=== PATIENT | female | born 1950 | race Caucasian/White ===

== ENCOUNTER → 2016-10-16 | Outpatient (CLI) | payer MEDICARE, BC ==
[~2016-10-16] MED LIST: ACETAMINOPHEN PO; CELEXA20 MG PO; CHOLESTYRAMINE L4 GM PO; CHOLESTYRAMINE P4 GM PO; CLARITIN10 M3 PO; CYMBALTA20 MG PO; FISH OIL 1,0001 CA2 PO; HUMIRA PSO40 MG/0.8 INJ; HYDROCHLOROTHIA25 MG PO; LIPITOR20 MG PO; LISINOPRIL10 MG PO; LO-DOSE ASPIRIN81 M1 PO; LORTAB PO; METFORMIN HCL1000 M2 PO; METOPROLOL SUCC25 MG PO; NEXIUM PO; ONE DAILY 50 PL1 TA1 PO; RESTASIS32 EA OD; TYLENOL PO; ZESTRIL10 M1 PO
--- NOTE | ~2016-10-16 | EKG ---
PATIENT: RUTH RAMIREZ UNIT #: [id number] Ventricular Rate: 70 BPM Atrial Rate: 70 BPM P-R Interval: 168 ms QRS Duration: 88 ms Q-T Interval: 436 ms QTC Calculation(Bezet): 470 ms P Spencer: 45 degrees Calculated R Spencer: 7 degrees Calculated T Spencer: 16 degrees Diagnosis Line: Sinus rhythm with frequent Premature ventricular Diagnosis Line: complexes Diagnosis Line: Nonspecific ST abnormality Diagnosis Line: Abnormal ECG Diagnosis Line: When compared with ECG of 11-JUL-2014 12:14, Diagnosis Line: Premature ventricular complexes are now Present Diagnosis Line: Confirmed by GURINDER MCGHEE MD ([id number]) on 10/16/2016 Diagnosis Line: 10:48:39 PM Diagnosis Line: Also confirmed by GURINDER MCGHEE MD ([id number]), photograph editor Diagnosis Line: SULEMAN BARRERA ([id number]) on 10/21/2016 11:24:58 AM INTERPRETING MD: TAZ RIDDLE
--- NOTE | ~2016-10-16 | EKG ---
PATIENT: RUTH RAMIREZ UNIT #: [id number] Ventricular Rate: 70 BPM Atrial Rate: 70 BPM P-R Interval: 168 ms QRS Duration: 88 ms Q-T Interval: 436 ms QTC Calculation(Bezet): 470 ms P Cord: 45 degrees Calculated R Cord: 7 degrees Calculated T Cord: 16 degrees Diagnosis Line: Sinus rhythm with frequent Premature ventricular Diagnosis Line: complexes Diagnosis Line: Nonspecific ST abnormality Diagnosis Line: Abnormal ECG Diagnosis Line: When compared with ECG of 11-JUL-2014 12:14, Diagnosis Line: Premature ventricular complexes are now Present Diagnosis Line: Confirmed by GURINDER MCGHEE MD ([id number]) on 10/16/2016 Diagnosis Line: 10:48:39 PM Diagnosis Line: Also confirmed by GURINDER MCGHEE MD ([id number]), editor house organ Diagnosis Line: SULEMAN BARRERA ([id number]) on 10/21/2016 11:24:58 AM Diagnosis Line: Also confirmed by GUIRNDER MCGHEE MD ([id number]), editor house organ Diagnosis Line: SULEMAN BARRERA ([id number]) on 10/21/2016 11:25:30 AM INTERPRETING MD: TAZ RIDDLE
== END | disposition home or self-care (01) ==
LOC: CRAD 17:31
DX: R00.2 Palpitations (principal); R94.31 Abnormal electrocardiogram [ECG] [EKG]
CPT/HCPCS: 93005

== ENCOUNTER → 2016-10-28 | Outpatient (CLI) | payer MEDICARE, BC ==
--- NOTE | ~2016-10-28 | CT55 ---
[facility] A Service of [facility] RADIOLOGY TEXT RESULTS PATIENT: RUTH RAMIREZ LOCATION: [facility] : 51 UNIT #: [id number] AGE: [address]: Lucretia Huerta SEX: F ORDER DR: [id number] [place], [place] [address] [id number] O MR#: [id number] Acc #: [id number] NAME: RUTH RAMIREZ. : 1950 SEX: F STUDY DATE/TIME: 10/28/2016 14:31 UNIT: [facility] ROOM: STUDY DESCRIPTION: CT Chest W Con Attending Physician: Lucretia Huerta A.P.R.N. Ordering Physician: Lucretia Huerta A.P.R.N. Primary Care Physician: Lyly Singh M.D. MEDICAL IMAGING REPORT This report is preliminary unless electronic signature is present EXAM CT of the chest with contrast INDICATION Hemoptysis for 3-[address] scan of the chest was performed following the administration of IV contrast. Coronal and sagittal reformatted images were obtained. This CT exam was performed with one or more of the following radiation dose reduction techniques: automatic exposure control, adjustment of mA and/or kV according to patient size, and iterative reconstruction. COMPARISON 05/31/2013 FINDINGS There are a few scattered tiny calcified granulomas within the lungs. There is no airspace consolidation or suspicious pulmonary nodule. There is no suspicious lymphadenopathy or pleural effusion. Limited imaging of the upper abdomen demonstrates a Lap-Band. There is a nodular contour of the liver suggesting possible cirrhosis. Bone windows are unremarkable. IMPRESSION 1. There is no airspace consolidation or suspicious pulmonary nodule. 2. Incidentally noted is a nodular contour of the liver suggesting possible cirrhosis. Dictated by... Felipe Cunha M.D. THIS IS AN ELECTRONICALLY VERIFIED REPORT [facility] A Service of [facility] RADIOLOGY TEXT RESULTS PATIENT: RUTH RAMIREZ LOCATION: [facility] : 51 UNIT #: [id number] AGE: [address]: Lucretia Huerta SEX: F ORDER DR: Felipe Cunha M.D. at 10/30/2016 5:12 PM Obdulia TD: 10/29/2016 09:00 JOB #: [id number] MEDICAL IMAGING REPORT Page 1 of 1 COPY
[2016-10-28 14:01] LABS: CREATININE SERUM 0.7 mg/dL (0.6-1.4); GLOM FILT RATE Estimated 90.9 mL/min (>60)
== END | disposition home or self-care (01) ==
LOC: CLAB 12:54
PROVIDERS: Nurse Practitioner Acute Care
DX: R04.2 Hemoptysis (principal)
CPT/HCPCS: 36415; 71260; 82565; 84520; Q9967

== ENCOUNTER → 2016-11-04 | Day surgery (SDC) | payer MEDICARE, BC ==
--- NOTE | ~2016-11-04 | OR ---
Unit #: [id number] #: [id number] Patient: RUTH RAMIREZ [id number] [address] [address] [id number] O MR#: [id number] NAME: RUTH RAMIREZ. ROOM: Date of Procedure: 11/04/2016 Admission Date: 11/04/2016 Surgeon: Navin Arreguin M.D. : 1950 Attending Physician: Navin Arreguin M.D. Primary Care Physician: Lyly Lopes M.D. OPERATIVE REPORT JOB NOTE: CC: DR. LOPES, DR. MEDLEY. PROCEDURE PERFORMED Flexible fiberoptic bronchoscopy. INDICATIONS FOR PROCEDURE Hemoptysis. FINDINGS No definite tumor. No definite bleeding; however, she did have an area of somewhat friable mucosa left upper lobe. This area was biopsied and washed. SEDATION MAC. COMPLICATIONS Zero. CONDITION AFTER PROCEDURE Stable to recovery room. DESCRIPTION OF PROCEDURE The patient was brought to the endoscopy suite and monitored for heart rate, blood pressure, and saturations. She was sedated via MAC. Anesthetized with 2% lidocaine in both nares. Viscous lidocaine was applied to her right naris. Bronchoscope was introduced without difficulty. Vocal cords were visualized. They were normal in configuration and motion, anesthetized x2. Main trachea was intubated. Airways were anesthetized. All subsegments were identified; although, there was limited of visualization of the apical segment right upper lobe as well as one area in her lingula. This was due to technical reasons with the ability of the scope to make acute angles. However, fairly good visualization was performed and no definite endobronchial lesions were seen. She did have an area of somewhat friable mucosa left upper lobe that was easily bleeding. Again, no definite mucosal abnormality noted. Most of this occurred during the bronchoscopy and likely with some degree of scope trauma and secondary to coughing. However, given her history of hemoptysis, this area was biopsied. Hemostasis was confirmed by observation. Bronchoscope was removed without difficulty. The patient is in good condition postprocedure. Unit #: [id number] #: [id number] Patient: RUTH RAMIREZ Dictated by... Navin Arreguin M.D. WOL/modl TD: 11/05/2016 04:22 JOB #: [id number] OPERATIVE REPORT Page 1 of 1 X Navin Arreguin MD PROCEDURE OPERATIVE NOTE
[2016-11-04 10:44] LABS: BASOPHIL# 0.2 X10e3 (0-0.3); BASOPHIL% 2.3 % (0-2.5); EOSINOPHIL# 0.3 X10e3 (0-0.7); EOSINOPHIL% 3.8 % (0.0-7.0); HEMATOCRIT 42.1 % (35.0-45.0); LYMPHOCYTE# 2.5 X10e3 (1.0-3.5); LYMPHOCYTE% 29.6 % (17.0-45.0); MEAN CELL VOLUME 93.2 FL (83-96); MEAN CORPUSCULAR HGB CONC 33.3 g/dL (30-36); MEAN PLATELET VOLUME 9.3 FL (6.5-11.5); MONOCYTE# 0.6 X10e3 (0-1.0); MONOCYTE% 7.4 % (3.0-12.0); NEUTROPHIL# 4.8 X10e3 (1.5-7.1); NEUTROPHIL% 56.9 % (40-75); PLATELET COUNT 175 X10e3 (140-420); RED BLOOD COUNT 4.52 X10e (3.90-5.30); RED CELL DISTRIBUTION WIDTH 13.4 % (11.0-15.5); WHITE BLOOD COUNT 8.4 X10e3 (4.0-10.5)
[2016-11-04 10:45] LABS: DIFF IND NO
[2016-11-04 11:02] LABS: INR 1.1; PARTIAL THROMBOPLASTIN TIME 27.6 SECONDS (23.5-31.3)
== END | disposition home or self-care (01) ==
LOC: COPS 09:26
PROVIDERS: Internal Medicine
DX: J98.4 Other disorders of lung (principal); I10 Essential (primary) hypertension; I25.10 Atherosclerotic heart disease of native coronary artery without angina pectoris; J43.9 Emphysema, unspecified; E11.9 Type 2 diabetes mellitus without complications; G47.33 Obstructive sleep apnea (adult) (pediatric); F41.9 Anxiety disorder, unspecified; M19.90 Unspecified osteoarthritis, unspecified site; E66.9 Obesity, unspecified; K50.90 Crohn's disease, unspecified, without complications; R76.11 Nonspecific reaction to tuberculin skin test without active tuberculosis; K21.9 Gastro-esophageal reflux disease without esophagitis; L40.9 Psoriasis, unspecified; Z68.41 Body mass index [BMI] 40.0-44.9, adult; Z87.891 Personal history of nicotine dependence; Z88.6 Allergy status to analgesic agent; Z80.1 Family history of malignant neoplasm of trachea, bronchus and lung; Z82.5 Family history of asthma and other chronic lower respiratory diseases; Z88.8 Allergy status to other drugs, medicaments and biological substances; Z79.84 Long term (current) use of oral hypoglycemic drugs; Z79.82 Long term (current) use of aspirin; Z79.899 Other long term (current) drug therapy
CPT/HCPCS: 82947; 85025; 85610; 85730; 87070; 87102; 87116; 87205; 87206; 88108; 88305; J0171; J2250

== ENCOUNTER → 2016-11-26 | Outpatient (CLI) | payer MEDICARE, BC ==
--- NOTE | ~2016-11-26 | TH ---
Unit #: [id number] #: [id number] Patient: RUTH RAMIREZ [id number] [facility]. [address] [address] [id number] O MR#: [id number] NAME: RUTH RAMIREZ : 1950 SEX: F STUDY DATE/TIME: 11/26/2016 UNIT: [facility] ROOM: STUDY DESCRIPTION: Lexiscan stress test - Nuclear Attending Physician: Chani Valentino M.D. Referring Physician: Chani Valentino M.D. Primary Care Physician: Lyly Singh M.D. CARDIOLOGY REPORT PROCEDURE PERFORMED Lexiscan Cardiolite stress test - Nuclear portion. PROCEDURE Using technetium 99m-labeled Cardiolite, rest and stress SPECT images were obtained. Multiple SPECT images were obtained in various views, including horizontal and vertical long axis and short axis views of the left ventricle. Images were obtained by gated SPECT method. The patient was administered 11.07 mCi of Cardiolite at rest. The patient was administered 35.6 mCi of Cardiolite after Lexiscan infusion was completed. On the stress images, there is normal perfusion noted. The rest images show normal perfusion. Comparing the rest and stress images, there is no stress-induced ischemia noted. The left ventricular ejection fraction is calculated to be 62%. There is no focal wall motion abnormality seen. CONCLUSION 1. No stress-induced ischemia noted. 2. The left ventricular ejection fraction is calculated to be 62%. 3. There is no focal wall motion abnormality seen. 4. Normal Lexiscan Cardiolite stress test. 5. Technically limited study due to patient's body habitus. Clinical correlation is requested. Dictated by... Elizabeth Diaz TD: 11/26/2016 14:19 JOB #: [id number] CARDIOLOGY REPORT Page 1 of 1 X Chani Valentino MD <ELECTRONICALLY SIGNED> 01/11/17 1428 CARDIOLOGY REPORT
--- NOTE | ~2016-11-26 | ST ---
Unit #: [id number] #: [id number] Patient: RUTH RAMIREZ [id number] [address] [address] [id number] O MR#: [id number] NAME: RUTH RAMIREZ. : 1950 SEX: F STUDY DATE/TIME: 11/26/2016 UNIT: [facility] ROOM: STUDY DESCRIPTION: Lexiscan stress test Attending Physician: Chani Valentino M.D. Referring Physician: Chani Valentino M.D. Primary Care Physician: Lyly Singh M.D. CARDIOLOGY REPORT EXAM EKG portion of a walking Lexiscan Cardiolite stress test. REASON FOR EXAM Palpitations and history of atrial fibrillation. DISCUSSION Baseline EKG reveals sinus bradycardia with a ventricular rate of 59 beats per minute. PVC noted at baseline. No acute ST or T wave changes. The patient exercised on the treadmill for four minutes. At the beginning of exercise, a total of 0.4 mg of Lexiscan was injected followed by Cardiolite. There were no complaints of chest pain. There were occasional to frequent premature ventricular complexes. There was less than 0.[address] depression in the anterior leads. The maximal heart rate was 108 beats per minute with a maximum blood pressure of 170/79 mmHg. The test was stopped due to protocol completion. IMPRESSION 1. Negative EKG portion of walking Lexiscan Cardiolite stress test. 2. There were no complaints of chest pain. 3. There were occasional to frequent premature ventricular complexes noted at baseline and throughout the study. 4. There was less than equal to 0.[address] depression in the anterior leads which resolved in recovery. Again, the patient had no chest pain. 5. Please correlate with Cardiolite images. Dictated by... Kori Bass APRN for Elizabeth Diaz TD: 11/27/2016 07:17 JOB #: [id number] Unit #: [id number] #: [id number] Patient: RUTH RAMIREZ CARDIOLOGY REPORT Page 1 of 1 X CARDIOLOGY REPORT
== END | disposition home or self-care (01) ==
LOC: CNUC 08:36
DX: R07.9 Chest pain, unspecified (principal); I48.91 Unspecified atrial fibrillation
CPT/HCPCS: 78452; 93017; A9500; J2785

== ENCOUNTER → 2016-12-30 | Outpatient (CLI) | payer MEDICARE, BC ==
--- NOTE | ~2016-12-30 | BD1 ---
[facility] A Service of [facility] RADIOLOGY TEXT RESULTS PATIENT: RUTH RAMIREZ LOCATION: [facility] : 51 UNIT #: [id number] AGE: [address]: Lyly Singh MD SEX: F ORDER DR: [id number] [facility] [address] [place], [place] [address] [id number] O MR#: [id number] Acc #: [id number] NAME: RUTH RAMIREZ : 1950 SEX: F STUDY DATE/TIME: 12/30/2016 12:53 UNIT: [facility] ROOM: STUDY DESCRIPTION: BD Dexa Bone Dens 1+ Site Attending Physician: Lyly Singh M.D. Referring Physician: Lyly Singh M.D. Ordering Physician: Lyly Singh M.D. Primary Care Physician: Lyly Singh M.D. MEDICAL IMAGING REPORT This report is preliminary unless electronic signature is present EXAM Bone densitometry; 12/30/2016. CLINICAL HISTORY 66-year-old postmenopausal female. FINDINGS The bone mineral density of the lumbar spine (L1-L4) is calculated at 1.018 g/cm2. This correlates with a T-score of -0.3 and a Z-score of 1.5. This is classified as normal bone mineral density. The bone mineral density of the left proximal femoral neck region is calculated at 0.812 g/cm2. This correlates with a T-score of -0.3 and Z-score of 1.2. This is classified as normal bone mineralization. IMPRESSION Normal bone mineralization. Dictated by... Mukul Ghosh M.D. THIS IS AN ELECTRONICALLY VERIFIED REPORT Mukul Ghosh M.D. at 01/01/2017 6:52 AM DERICK/lani TD: 12/31/2016 15:37 JOB #: [id number] MEDICAL IMAGING REPORT Page 1 of 1 COPY
--- NOTE | ~2016-12-30 | US98 ---
[facility] A Service of [facility] RADIOLOGY TEXT RESULTS PATIENT: RUTH RAMIREZ LOCATION: [facility] : 52 UNIT #: [id number] AGE: [address]: Lyly Singh MD SEX: F ORDER DR: [id number] [facility] [address] [place], [place] [address] [id number] O MR#: [id number] Acc #: [id number] NAME: RUTH RAMIREZ : 1950 SEX: F STUDY DATE/TIME: 12/30/2016 12:26 UNIT: [facility] ROOM: STUDY DESCRIPTION: US Pelvic Non-OB Complete Attending Physician: Lyly Singh M.D. Referring Physician: Lyly Singh M.D. Ordering Physician: Lyly Singh M.D. Primary Care Physician: Lyly Singh M.D. MEDICAL IMAGING REPORT This report is preliminary unless electronic signature is present EXAM Transabdominal and transvaginal pelvic ultrasound 12/30/2016 HISTORY Left lower quadrant pelvic pain and abdominal pain for 7 months. Increasing in the last 2 months. FINDINGS Transabdominal and transvaginal pelvic ultrasound was performed. Endovaginal ultrasound was performed for attempted better visualization of the adnexal structures. The bladder is normal in appearance. Uterus measures 7.3 cm craniocaudal x 3.5 cm AP x 5.3 cm transverse. Endometrial stripe measures 4 mm. Right ovary measured 2 cm x 1.8 cm x 7 mm. The left ovary was not identified. There is no adnexal mass. There is no free fluid in the pelvis. IMPRESSION Exam is limited, as the left ovary was not identified on either transabdominal or transvaginal portions of the examination. Otherwise, negative pelvic ultrasound. Dictated by... Antolin Weems M.D. THIS IS AN ELECTRONICALLY VERIFIED REPORT Antolin Weems M.D. at 12/31/2016 2:10 PM MICHELLE/maggie TD: 12/30/2016 19:18 JOB #: [id number] [facility] A Service of [facility] RADIOLOGY TEXT RESULTS PATIENT: RUTH RAMIREZ LOCATION: [facility] : 51 UNIT #: [id number] AGE: [address]: Lyly Singh MD SEX: F ORDER DR: MEDICAL IMAGING REPORT Page 1 of 1 COPY
== END | disposition home or self-care (01) ==
LOC: CWCC 12:00
DX: Z13.820 Encounter for screening for osteoporosis (principal); R10.2 Pelvic and perineal pain
CPT/HCPCS: 76830; 76856; 77080

== ENCOUNTER → 2017-01-21 | Outpatient (CLI) | payer MEDICARE, BC ==
--- NOTE | ~2017-01-21 | US37 ---
[facility] A Service of [facility] & [facility] RADIOLOGY TEXT RESULTS PATIENT: RUTH RAMIREZ LOCATION: [facility] : 52 UNIT #: [id number] AGE: [address]: Christa Corley MD SEX: F ORDER DR: [id number] [facility] [address] [place], [place] [address] [id number] O MR#: [id number] Acc #: [id number] NAME: RUTH RAMIREZ : 1950 SEX: F STUDY DATE/TIME: 01/21/2017 14:07 UNIT: [facility] ROOM: STUDY DESCRIPTION: US Carotid W/Doppler Bilateral Attending Physician: Christa Corley M.D. Referring Physician: Christa Corley M.D. Ordering Physician: Christa Corley M.D. Primary Care Physician: Lyly Singh M.D. MEDICAL IMAGING REPORT This report is preliminary unless electronic signature is present EXAM Bilateral carotid Doppler HISTORY Carotid stenosis. FINDINGS The right common, internal and external carotid arteries are patent with mild plaque in the carotid bulb as well as internal and external carotid arteries. Velocity of the common carotid artery is 62 cm/sec. Peak systolic velocity of the right proximal internal carotid artery is 71 cm/sec with an end-diastolic velocity of 27 cm/sec for a ICA:CCA ratio of 1.15. External carotid artery had a velocity of 58 cm/sec. The vertebral artery is visualized with antegrade flow. The left common, internal and external carotid arteries are patent with [id number] plaque in the carotid bulb and internal carotid artery. Velocity of the common carotid artery is 69 cm/sec. Peak systolic velocity of the left proximal internal carotid artery is 126 cm/sec with an end-diastolic velocity of 47 cm/sec for a ICA:CCA ratio of 1.82. External carotid artery had a velocity of 95 cm/sec. The vertebral artery is visualized with antegrade flow. IMPRESSION 1. Less than 50% stenosis of the right internal carotid artery and 50-69% stenosis of the left internal carotid artery. 2. No stenosis of the external carotid arteries. 3. Antegrade flow of the vertebral arteries. Dictated by... [facility] A Service of [facility] & [facility] RADIOLOGY TEXT RESULTS PATIENT: RUTH RAMIREZ LOCATION: [facility] : 52 UNIT #: [id number] AGE: [address]: Christa Corley MD SEX: F ORDER DR: Christa Corley M.D. THIS IS AN ELECTRONICALLY VERIFIED REPORT Christa Corley M.D. at 01/22/2017 8:50 AM KEV/jennifer TD: 01/21/2017 18:15 JOB #: [id number] MEDICAL IMAGING REPORT Page 1 of 1 COPY
== END | disposition home or self-care (01) ==
LOC: CNIV 13:49
DX: I77.9 Disorder of arteries and arterioles, unspecified (principal); I65.23 Occlusion and stenosis of bilateral carotid arteries
CPT/HCPCS: 93880